=== PATIENT | male | born 2000 | race Caucasian/White ===

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

== ENCOUNTER → 2020-03-09 | Outpatient (CLI) | payer OTHER ==
[2020-03-09 15:39] LABS: ALBUMIN 4.6 g/dL (3.5-5.0)
[2020-03-09 15:41] LABS: TOTAL PROTEIN 8.1 g/dL (6.4-8.3)
[2020-03-09 15:43] LABS: TOTAL BILIRUBIN 0.3 mg/dL (0.2-1.2)
[2020-03-09 15:47] LABS: DIRECT BILIRUBIN 0.2 mg/dL (0.0-0.5)
== END ==
LOC: LAB 15:13
PROVIDERS: Physician Assistant
DX: Z51.81 Encounter for therapeutic drug level monitoring (principal); Z79.899 Other long term (current) drug therapy

== ENCOUNTER → 2020-05-05 | Outpatient (CLI) | payer OTHER ==
[2020-05-05 10:36] LABS: ALBUMIN 4.5 g/dL (3.5-5.0)
[2020-05-05 10:38] LABS: TOTAL PROTEIN 7.5 g/dL (6.4-8.3)
[2020-05-05 10:40] LABS: TOTAL BILIRUBIN 0.4 mg/dL (0.2-1.2)
[2020-05-05 10:44] LABS: DIRECT BILIRUBIN 0.2 mg/dL (0.0-0.5)
== END ==
LOC: LAB 10:03
PROVIDERS: Physician Assistant
DX: Z51.81 Encounter for therapeutic drug level monitoring (principal); Z79.899 Other long term (current) drug therapy

== ENCOUNTER → 2022-10-17 | Outpatient (CLI) | payer OTHER ==
[2022-10-17 22:59] LABS: HEPATITIS B SURFACE ANTIBODY <2.0 (())
== END ==
LOC: LAB 08:06
PROVIDERS: Family Medicine
DX: Z02.0 Encounter for examination for admission to educational institution (principal)